=== PATIENT | male | born 1985 | race Hispanic/Latino ===

== ENCOUNTER 2024-04-25 03:25 | Emergency (ER) | payer OTHER, SELFPAY ==
[2024-04-25 03:28] VITALS: BP 135/96; BMI 26.4
--- NOTE | 2024-04-25 03:43 | ED.GENMED ---
History of Present Illness
General
Chief Complaint: Urinary Symptoms
Source: patient and ambulance crew
Time Seen by Provider: 04/25/24 03:30
History of Present Illness
History of Present Illness:
38-year-old male prisoner who presents to the emergency department with scrotal pain. Patient is being
Review of Systems
Review of Systems
Allergies reviewed?: Yes
Other source history: ambulance crew
All Other Systems: ROS reviewed and negative except as documented in HPI and ROS
Constitutional: Reports no symptoms
EENT: Reports no symptoms
Respiratory: Reports no symptoms
Cardiac: Reports no symptoms
ABD/GI: Reports no symptoms
: Reports difficulty voiding and other (testicular pain)
Musculoskeletal: Reports no symptoms
Skin: Reports no symptoms
Neurological: Reports no symptoms
Endocrine: Reports no symptoms
Hematologic/Lymphatic: Reports no symptoms
Psychiatric: Reports no symptoms
Phy Exam
General Physical Exam
General Presentation: well appearing and no apparent distress
General Skin: warm and dry
General Habitus: normal
General Mental: alert
General Hydration: appears well hydrated
ENT Exam
ENT Exam: EOMI, pharynx normal, neck supple and normocephalic
Eye Exam
Eye Exam: PERRL, cornea clear and conjunctiva normal
Cardiovascular Exam
Cardiovascular Exam: regular rate/rhythm, no edema, no murmur and normal peripheral pulses
Pulmonary Exam
Pulmonary Exam: lungs clear, no respiratory distress, no rales, no crackles, no rhonchi, no stridor, no wheezing and no cough
Gastrointestinal Exam
Gastrointestinal Exam: normal bowel sounds, non tender, soft, no organomegaly, no pulsatile mass and non distended
Genitourinary Exam Male
Exam Male: circumcised, no discharge, no evidence of trauma and other (Tattoo on the shaft of the penis)
Testicular Exam: Scrotal swollen: Bilateral and Tender to palpation: Bilateral
Neurological Exam
Neurological Exam: alert, oriented x3, no motor deficits and speech normal
Musculoskeletal Exam
Musculoskeletal Exam: full ROM and no edema
Skin Exam
Skin Exam: normal color, warm/dry, no rash and no petechia
Psychiatric Exam
Psychiatric Exam: normal mood/affect, agitated and anxious
Course
Orders/Labs/Results
Orders:
Orders
04/25/24 03:28
Bladder Scan- Treatment ONCE
Bladder Scan As Directed
Follow Bladder Retention/Intermittent Cath Algorithm?: No
04/25/24 03:36
CT Abd/pelvis W Iv Cont Urgent
Comment:
Reason For Exam: lower abd pain rad into groin
04/25/24 03:48
Complete Blood Count/With Diff Urgent
Comprehensive Metabolic Panel Urgent
04/25/24 05:14
US Scrotum Urgent
Comment:
Reason For Exam: pain
04/25/24 06:41
Urinalysis Reflex To Culture Urgent
Date Specimen was Collected: 04/25/24
Time Specimen was Collected: 06:35
Abnormal Lab Results
04/25/24
03:48
RBC 4.50 L 10^6/uL
(4.70-6.10)
Hct 38.0 L %
(39.0-52.0)
MCH 31.6 H pg
(27.0-31.0)
MCHC 37.4 H g/dL
(33.0-37.0)
MPV 10.7 H fL
(7.4-10.4)
Absolute Monos (auto) 0.8 H 10^3/uL
(0.1-0.6)
Monocytes % 10.0 H %
(1.7-9.3)
04/25/24 03:48
04/25/24 03:48
Vital Signs
Initial and Last Documented VS:
Initial Vital Signs
Temp Pulse Resp BP Pulse Ox
97.9 F 70 18 135/96 100
04/25/24 03:28 04/25/24 03:28 04/25/24 03:28 04/25/24 03:28 04/25/24 03:28
Last Documented Vital Signs
Temp Pulse Resp BP Pulse Ox
97.9 F 70 18 149/90 99
04/25/24 03:28 04/25/24 03:28 04/25/24 03:28 04/25/24 04:00 04/25/24 04:30
*Radiology
Radiology exam reviewed: radiology read reviewed
*Pulse Oximetry
Patient hypoxic: no
*Critical Care Note
Total Time (30-74mins, 75-104mins- exclusive of procedures): Not Applicable
Update Note
Update Note:
Ultrasound scrotum
IMPRESSION:
Testicles normal without torsion. Trace right hydrocele. Left epididymis not well visualized. Hypoechoic/heterogeneous region superior to the left testicle which could reflect the reported mesh. Recommend urology consultation.
CT abdomen and pelvis with IV contrast
IMPRESSION:
The lower scrotum is outside the field of view, limiting assessment.
No cholecystitis, pancreatitis, obstructing renal stone, appendicitis, or diverticulitis.
Abdominal aorta normal caliber. Lung bases are clear. Mild bladder wall thickening; correlate with urinalysis.
Finalized at 5 AM EST
Spoke with Dr. Todd, urology. We reviewed CT scan and ultrasound. He did not recommend repeating the CAT scan to see the bottom of the scrotum. Discussed this plan with patient. He will go back to nursing home and follow-up with Madi Hunter.
Urinalysis will be reviewed.
ED Attending Note
-
Portions of this chart may have been created with voice recognition software.� Occasional wrong word or��sound alike� substitutions may have occurred due to the inherent limitations of voice recognition software.
Discharge Plan
Departure
Patient Disposition: Home (Routine Discharge)
Date of Disposition: 04/25/24
Time of Disposition: 06:56
Patient with high blood pressure during this ER visit?: Yes
Condition: Good
Discharge Problem:
Pain in left testicle
Instructions: Testicular cancer, Testicular Injury, BLOOD PRESSURE
Prescriptions:
New
tramadol 50 mg tablet
50 mg PO Q8H PRN (Reason: Pain) Qty: 14 0RF
Referrals:
[facility] [Family Provider] -
Ken Todd MD [Active] - As needed
Activity Restrictions/Additional Instructions:
Patient medically cleared for incarceration
Please follow-up with Madi Hunter at your earliest convenience for continued evaluation of your pain.
It was a pleasure meeting you and taking part in your care. We hope for your continued healing and wellness.
Please read discharge instructions in their entirety. However, they are for general education and may not describe your exact diagnosis at discharge. Information on your ER visit and medical conditions were discussed with you along with appropriate
follow up information...
If indicated, please take your medications as instructed and indicated on discharge paperwork.
Please schedule a follow up appointment as directed. Call to schedule an appointment
Please return to the emergency department with ANY change in, persisting, or worsening of symptoms. If any of your symptoms do not improve, or persist, or become more severe within 6-12 hours, please return to the emergency department for further
care.
Please return to the emergency department if you develop a headache, neck pain/stiffness, fever greater than 100.4F, chest pain, shortness of breath, persistent nausea, vomiting, slurred speech, difficulty walking, numbness/tingling, weakness, signs
of infection or any other symptoms that are worrisome to you.
If you have any questions or concerns please do not hesitate to call the Hospital at
Interventions
Interventions:
*Risk Screen - Suicide Last Done: 04/25/24 03:28
*General Assessment Last Done: 04/25/24 03:28
ED- Fall Risk Assessment Last Done: 04/25/24 04:05
*ED COVID-19 Vaccine History Last Done: 04/25/24 03:28
ED-Male Genitourinary Assessment Last Done: 04/25/24 04:05
Discharge Date and Time
Print Language: MACEDONIAN
[2024-04-25 03:59] LABS: % Basophils 0.7 % (0-2); % Eosinophils 2.3 % (0-6); % Immature Granulocytes 0.1 % (0-0.5); % Lymphocytes 36.2 % (20.5-51.1); % Neutrophils 50.7 % (42.2-75.2); Absolute Basophils 0.1 10^3/uL (0-0.2); Absolute Eosinophils 0.2 10^3/uL (0-0.7); Absolute Monocytes 0.8 10^3/uL (0.1-0.6); Absolute Neutrophils 4.1 10^3/uL (1.4-6.5); Hemoglobin 14.2 g/dL (13.0-18.0); Mean Corp Hgb Conc. 37.4 g/dL (33.0-37.0); Mean Corpuscular Hgb 31.6 pg (27.0-31.0); Mean Corpuscular Volume 84.4 fL (80.0-94.0); Mean Platelet Volume 10.7 fL (7.4-10.4); Nucleated Red Blood Cells % 0 % (-); Platelet Count 216 10^3/uL (130-400); Red Cell Dist. Width 11.8 % (11.5-14.5); White Blood Cell Count 8.1 10^3/uL (4.8-10.8)
[2024-04-25 04:00] VITALS: BP 149/90
[2024-04-25 04:15] LABS: ALT (SGPT) 20 U/L (0-50); AST (SGOT) 28 U/L (17-59); Albumin 4.9 g/dl (3.5-5.0); Alkaline Phosphatase 94 U/L (38-126); Blood Urea Nitrogen 13 mg/dl (9-20); Calcium 9.7 mg/dl (8.4-10.2); Carbon Dioxide 25 mmol/L (22-30); Chloride 102 mmol/L (98-107); Estimated Creatinine Clearance 123 ml/min; Glucose 87 mg/dl (70-99); Potassium 4.1 mmol/L (3.5-5.1); Sodium 141 mmol/L (135-145); Total Bilirubin 0.7 mg/dl (0.2-1.3); Total Protein 7.3 g/dl (6.3-8.2); eGFR > 60.00
[2024-04-25 07:01] LABS: Urine Albumin Negative (Neg - Trace); Urine Bilirubin Negative (Negative); Urine Character Clear (Clear); Urine Color Yellow; Urine Glucose Negative (Negative); Urine Ketone Negative (Negative); Urine Leukocyte Negative (Negative); Urine Nitrite Negative (Negative); Urine Occult Blood Negative (Negative); Urine Specific Gravity 1.005 (<1.030); Urine Urobilinogen Negative (Neg - 1+); Urine pH 6.5 (5.0-9.0)
[2024-04-25 07:14] VITALS: BP 132/85
== END 2024-04-25 07:18 | disposition home or self-care (01) ==
LOC: EMR 03:25
PROVIDERS: EMERGENCY PHYSICIAN Student in an Organized Health Care Education/Training Program
DX: N50.812 Left testicular pain (principal)
CPT/HCPCS: 99284; 74177; 76870; 80053; 81003; 85025; 93976; Q9967

== ENCOUNTER → 2024-09-14 10:26 | Outpatient (REF) | payer OTHER, SELFPAY | LOC: MRI 10:26 | PROVIDERS: ATTENDING PHYSICIAN Orthopaedic Surgery; FAMILY PHYSICIAN General Practice | DX: M25.562 Pain in left knee (principal); G89.29 Other chronic pain; M23.92 Unspecified internal derangement of left knee | CPT/HCPCS: 73721 ==

== ENCOUNTER 2024-12-13 06:18 | Emergency (ER) | payer OTHER, SELFPAY ==
[2024-12-13 06:20] VITALS: BP 148/92
[2024-12-13 06:29] VITALS: BMI 23.5
--- NOTE | 2024-12-13 06:54 | ED.GENMED ---
History of Present Illness
General
Chief Complaint: Abdominal Pain
Source: patient
Exam Limitations: none
Time Seen by Provider: 12/13/24 06:45
History of Present Illness
History of Present Illness:
See MDM
Past History
Past History
ED Past Medical History: Cancer (testicular )
ED Past Surgical History: Urological
Social History
Tobacco: Non-smoker
Alcohol: None
Phy Exam
Physical Exam
Physical Exam:
See MDM
Course
Orders/Labs/Results
Orders:
Orders
12/13/24 06:54
CT Abd/pelvis W Iv Cont Urgent
Comment:
Reason For Exam: general abd pain
12/13/24 07:03
Complete Blood Count/With Diff Urgent
Comprehensive Metabolic Panel Urgent
Lipase Urgent
Abnormal Lab Results
12/13/24
07:03
RBC 4.64 L 10^6/uL
(4.70-6.10)
MCH 31.3 H pg
(27.0-31.0)
MPV 10.8 H fL
(7.4-10.4)
Absolute Monos (auto) 0.7 H 10^3/uL
(0.1-0.6)
Glucose 119 H mg/dl
(70-99)
12/13/24 07:03
12/13/24 07:03
Vital Signs
Initial and Last Documented VS:
Initial Vital Signs
Temp Pulse Resp BP Pulse Ox
98 F 58 20 148/92 98
12/13/24 06:20 12/13/24 06:20 12/13/24 06:20 12/13/24 06:20 12/13/24 06:20
Last Documented Vital Signs
Temp Pulse Resp BP Pulse Ox
98 F 55 16 121/71 99
12/13/24 06:20 12/13/24 09:34 12/13/24 09:34 12/13/24 09:34 12/13/24 09:34
MDM/Problems Addressed
Differential Diagnosis Includes:
Note:
CHIEF COMPLAINT(S)
Abdominal pain
HISTORY OF PRESENT ILLNESS
The patient is a 39-year-old male presenting with abdominal pain. The pain started a week ago but worsened significantly two days prior to this visit. The pain is located in the middle of the abdomen. The patient reports pressing on the abdomen
exacerbates the pain, but there is no associated vomiting. He denies alcohol consumption. The patient mentions a history of prior evaluations including endoscopy and colonoscopy, which did not yield a definitive diagnosis. He is concerned about a
sensation consistent with something unusual in his abdomen. He claims he had an US recently and states he saw a 'rat' on the screen. Pt is asking for surgery to remove the Rat. During the HPI, pt becoming extremely argumentative and verbally
aggressive.
EXTERNAL RECORDS REVIEWED
Previous endoscopy and colonoscopy noted by the patient, but specific results or records not provided for review in the ER visit.
REVIEW OF SYSTEMS
- Gastrointestinal: Abdominal pain, no vomiting reported.
PLAN
- Obtain a CT scan of the abdomen to assess for any surgical or pathological causes of pain.
- Discuss findings and next steps with the patient post-CT scan.
- Re-evaluate pain and symptoms in conjunction with CT scan results.
PHYSICAL EXAM
General: Well appearing and non-toxic
HEENT: protecting airway
Neck: appears supple
CV: No evidence of cyanosis
Resp: No accessory muscle use
Abd: Non-distended. No abdominal tenderness noted
Extremities: No deformities
Neuro: alert
Psych: argumentative and verbally aggressive
Skin: Intact
DIFFERENTIAL DIAGNOSIS
The Differential Diagnosis includes, in no particular order and is not limited to:
- Gastrointestinal obstruction
- Abdominal hernia
- Peptic ulcer disease
- Appendicitis
- Diverticulitis
- Gallbladder disease
- Pancreatitis
Update: CT shows evidence of constipation and pulmonary nodule. Given his smoking history, discussed having this rechecked in 1 year. Discussed MiraLAX as needed. On reassessment, patient remains well-appearing nontoxic.
DISPOSITION
The patient is stable, well-appearing, and non-toxic. He is comfortable lying in bed and understands the risk and return precautions.
PLAN
The patient should follow up with his primary care doctor to re-evaluate the incidental pulmonary nodule. Education regarding potential symptoms of concern was provided.
MEDICAL DECISION MAKING
Differential diagnoses considered included gastrointestinal obstruction, abdominal hernia, peptic ulcer disease, appendicitis, diverticulitis, gallbladder disease, pancreatitis, abdominal mass or neoplasm, intra-abdominal abscess, and mesenteric
ischemia. A CT scan was performed to rule out these conditions.
*Pulse Oximetry
SaO2: 98
Oxygen Mode of Delivery: Room air
*Critical Care Note
Total Time (30-74mins, 75-104mins- exclusive of procedures): Not Applicable
ED Attending Note
-
Portions of this chart may have been created with voice recognition software.� Occasional wrong word or��sound alike� substitutions may have occurred due to the inherent limitations of voice recognition software.
Discharge Plan
Departure
Patient Disposition: Home (Routine Discharge)
Date of Disposition: 12/13/24
Time of Disposition: 09:41
Patient with high blood pressure during this ER visit?: No
Discharge Problem:
Constipation, Pulmonary nodule
Instructions: Constipation, Adult (DC)
Prescriptions:
No Action
No Current Medications
0
Referrals:
NONE,* [Family Provider, Internal Medicine]
Activity Restrictions/Additional Instructions:
Please return for any worsening symptoms.
You may return at any time if you have further concerns.
Please take MiraLAX as needed for constipation.
Please follow up with your doctor at the first available appointment, preferably this week.
Please discuss your symptoms and the incidental finding of a pulmonary nodule seen on the CT scan. The radiologist suggested that this should be rechecked in 1 year.
Thank you for choosing [facility].
Interventions
Interventions:
*Risk Screen - Suicide Last Done: 12/13/24 06:20
*General Assessment Last Done: 12/13/24 06:37
*Neglect/Abuse Screening Last Done: 12/13/24 06:20
*ED- Fall Risk Assessment Last Done: 12/13/24 06:30
*ED COVID-19 Vaccine History Last Done: 12/13/24 06:30
CC-Djhbdv-Quyivalvkj Assessment Last Done: 12/13/24 06:37
Discharge Date and Time
Print Language: SPANISH
[2024-12-13 07:17] LABS: % Basophils 0.5 % (0-2); % Eosinophils 1.8 % (0-6); % Immature Granulocytes 0.2 % (0-0.5); % Lymphocytes 29.7 % (20.5-51.1); % Monocytes 7.8 % (1.7-9.3); Absolute Basophils 0.1 10^3/uL (0-0.2); Absolute Eosinophils 0.2 10^3/uL (0-0.7); Absolute Lymphocytes 2.8 10^3/uL (1.2-3.4); Absolute Monocytes 0.7 10^3/uL (0.1-0.6); Absolute Neutrophils 5.5 10^3/uL (1.4-6.5); Hematocrit 41.7 % (39.0-52.0); Hemoglobin 14.5 g/dL (13.0-18.0); Mean Corp Hgb Conc. 34.8 g/dL (33.0-37.0); Mean Corpuscular Hgb 31.3 pg (27.0-31.0); Mean Corpuscular Volume 89.9 fL (80.0-94.0); Mean Platelet Volume 10.8 fL (7.4-10.4); Nucleated Red Blood Cells % 0 % (-); Platelet Count 221 10^3/uL (130-400); Red Blood Cell Count 4.64 10^6/uL (4.70-6.10); Red Cell Dist. Width 11.6 % (11.5-14.5); White Blood Cell Count 9.3 10^3/uL (4.8-10.8)
[2024-12-13 07:26] LABS: ALT (SGPT) 17 U/L (0-50); AST (SGOT) 19 U/L (17-59); Albumin 4.8 g/dl (3.5-5.0); Alkaline Phosphatase 101 U/L (38-126); Blood Urea Nitrogen 16 mg/dl (9-20); Calcium 9.1 mg/dl (8.4-10.2); Carbon Dioxide 24 mmol/L (22-30); Chloride 105 mmol/L (98-107); Estimated Creatinine Clearance > 125 ml/min; Glucose 119 mg/dl (70-99); Lipase 81 U/L (23-300); Potassium 4.5 mmol/L (3.5-5.1); Sodium 136 mmol/L (135-145); Total Bilirubin 0.9 mg/dl (0.2-1.3); Total Protein 7.4 g/dl (6.3-8.2); eGFR > 60.00
[2024-12-13 09:34] VITALS: BP 121/71
== END 2024-12-13 09:51 | disposition home or self-care (01) ==
LOC: EMR 06:18
PROVIDERS: EMERGENCY PHYSICIAN Student in an Organized Health Care Education/Training Program
DX: K59.00 Constipation, unspecified (principal); R91.1 Solitary pulmonary nodule
CPT/HCPCS: 99284; 74177; 80053; 83690; 85025; Q9967